=== PATIENT | male | born 1985 | race Caucasian/White ===

== ENCOUNTER 2017-08-15 13:38 | Emergency (ER) | payer OTHER ==
--- NOTE | 2017-08-15 15:46 | RAD ---
FOUR VIEWS RIGHT KNEE: History Pain. COMPARISON: None. FINDINGS: No joint effusion. Joint spaces are preserved. No fracture. No malalignment. There is a subtle sc lerosis involving the distal lateral femur. 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 Confirmation with MRI if clin ically warranted. IMPRESSION: Unremarkable 4 views right knee. POS: [facility]
== END 2017-08-15 14:20 | disposition home or self-care (01) ==
LOC: SCSER 13:38
DX: S80.01XA Contusion of right knee, initial encounter (principal); F17.210 Nicotine dependence, cigarettes, uncomplicated; X50.1XXA Overexertion from prolonged static or awkward postures, initial encounter; Y93.02 Activity, running